=== PATIENT | female | born 1955 | race Two or more races ===

== ENCOUNTER 2023-10-08 11:53 | Inpatient (IN) | payer MEDICARE, OTHER ==
[~2023-10-08] VITALS: Ht 154.9 cm; Wt 80.9 kg
[2023-10-08] MEDS: InsuLIN REG 1unit/0.01ml Soln (100units/ml) SC SCH (11:30)
[2023-10-08 13:59] LABS: Basophils # (auto) 0.1 10 ^3/uL (0-0.2); Eosinophils # (auto) 0.1 10 ^3/uL (0-0.8); Eosinophils % (auto) 0.7 % (0.0-7.0); Hematocrit 35.1 % (36.0-46.0); Hemoglobin 11.9 g/dL (12.2-16.2); Lymphocytes # (auto) 2.5 10 ^3/uL (0.4-5.4); Lymphocytes % (auto) 29.1 % (10.0-50.0); Mean Corpuscular Hemoglobin 30.8 pg (28.0-32.0); Mean Corpuscular Volume 90.6 fL (80.0-100.0); Monocytes # (auto) 0.7 10 ^3/uL (0-1.3); Monocytes % (auto) 8.1 % (0.0-12.0); Neutrophils # (auto) 5.3 10 ^3/uL (1.6-8.6); Neutrophils % (auto) 61.1 % (37.0-80.0); Nucleated Red Blood Cells % 0.1 %; Red Blood Cells 3.87 10^6/uL (4.0-5.20); Red Cell Distribution Width 13.2 % (11.8-14.3); White Blood Cell 8.6 10^3/uL (4.4-10.8)
[2023-10-08 14:09] LABS: Anion Gap 10 (5-15); Carbon Dioxide 24 mmol/L (20-30); Chloride 99 mmol/L (98-107); Potassium 4.4 mmol/L (3.5-5.1); Sodium 133 mmol/L (136-145)
[2023-10-08 14:10] LABS: Calcium 9.6 mg/dL (8.7-10.4)
[2023-10-08 14:15] LABS: BUN/Creatinine Ratio 4.6 (10.0-20.0); Blood Urea Nitrogen 54 mg/dL (9-23); Glucose 113 mg/dL (74-106)
[2023-10-08 15:23] VITALS: PULSE 74; RESP 19; O2SAT 96
[2023-10-08 16:03] LABS: Urine Bacteria None Seen /hpf (None Seen)
[2023-10-08 16:23] LABS: Urine Blood TRACE /uL (Negative); Urine Clarity Clear (Clear); Urine Color Light-Yellow (Yellow); Urine Protein, UAD 2+ (Negative); Urine Specific Gravity 1.014 (1.001-1.035); Urine Urobilinogen Normal (Negative); Urine WBC 4 /hpf (0 - 5)
[2023-10-08] MEDS ORDERED: DOCUSATE SOD 100 MG CAP PO PRN (16:30)
[2023-10-08] MEDS ORDERED: ACETAMINOPHEN 325 MG TAB PO PRN (16:30)
[2023-10-08] MEDS ORDERED: DEXTROSE (50%) 50ML SYRG IV PRN (16:30)
[2023-10-08] MEDS ORDERED: ONDANSETRON HCL 4 MG/2 ML VIAL IV PRN (16:30)
[2023-10-08] MEDS ORDERED: NITROGLYCERIN 0.4 MG SL TAB SL PRN (17:15)
[2023-10-08] MEDS ORDERED: MORPHINE SULFATE INJ 2 MG/ml SYRG IV PRN (17:15)
[2023-10-08] MEDS: ACCU-CHEK COMFORT CURVE STRIP VI SCH (17:35)
[2023-10-08] MEDS: SEVELAMER 800 MG TAB PO SCH (17:41)
[2023-10-08] MEDS ORDERED: SEVELAMER 800 MG TAB PO SCH (17:45)
[2023-10-08] MEDS: SEVELAMER 800 MG TAB PO ONE (18:34)
[2023-10-08 21:41] VITALS: BP 140/46; PULSE 62; RESP 18; TEMP 98; O2SAT 93
[2023-10-08 21:44] VITALS: BP 140/46; PULSE 62; RESP 18; TEMP 98; O2SAT 93
[2023-10-08] MEDS ORDERED: HYDR25TA87 PO (22:02)
[2023-10-08] MEDS ORDERED: CHLO25TA2 PO (22:02)
[2023-10-08] MEDS ORDERED: ESCI20TA PO (22:02)
[2023-10-08] MEDS ORDERED: AMIT25TA20 PO (22:02)
[2023-10-08] MEDS ORDERED: ERGO4000 XX (22:02)
[2023-10-08] MEDS ORDERED: AMLO1TAB22 PO (22:02)
[2023-10-08] MEDS ORDERED: HYDR-4798 PO (22:02)
[2023-10-08] MEDS ORDERED: SUCR1TAB PO (22:02)
[2023-10-08] MEDS ORDERED: BENZ100C97 PO (22:02)
[2023-10-08] MEDS ORDERED: FOLI400T15 PO (22:05)
[2023-10-08] MEDS ORDERED: ICOS1CAP OR (22:05)
[2023-10-08] MEDS ORDERED: INSLANTI SC (22:06)
[2023-10-08] MEDS ORDERED: FOLI-119 PO (22:06)
[2023-10-08] MEDS ORDERED: HYDRX10T PO (22:19)
[2023-10-08] MEDS ORDERED: ALBU108A14 IN (22:19)
[2023-10-08] MEDS ORDERED: LACT10SO3 PO (22:19)
[2023-10-08] MEDS ORDERED: DOCU-94 PO (22:19)
[2023-10-08] MEDS ORDERED: CLON-857 PO (22:19)
[2023-10-08] MEDS ORDERED: LATA0.008 RIGHTEYE (22:19)
[2023-10-08] MEDS ORDERED: TIOTCAP IN (22:19)
[2023-10-08] MEDS ORDERED: CLON0.1T PO (22:19)
[2023-10-08] MEDS ORDERED: CLON0.1D13 TD (22:19)
[2023-10-08] MEDS ORDERED: NALO4SPR2 (22:19)
[2023-10-08] MEDS ORDERED: SEVE800T8 PO (22:19)
[2023-10-08] MEDS ORDERED: FEXO-42 PO (22:19)
[2023-10-08] MEDS ORDERED: FLUT100I IN (22:19)
[2023-10-09] VITALS (8 sets, daily range): BP systolic 119–147; BP diastolic 55–68; PULSE 55–73; RESP 17–20; TEMP 98.1–99.4; O2SAT 93–100
[2023-10-09] MEDS: HYDROcodone-ACET 5/325MG TAB PO PRN (02:53)
[2023-10-09] MEDS: LACTULOSE 20Gm/30ML SOLN PO ONE (09:15)
[2023-10-09 09:50] LABS: Basophils # (auto) 0.1 10 ^3/uL (0-0.2); Basophils % (auto) 0.7 % (0.0-2.0); Eosinophils # (auto) 0.1 10 ^3/uL (0-0.8); Eosinophils % (auto) 1.2 % (0.0-7.0); Hematocrit 34.6 % (36.0-46.0); Hemoglobin 11.9 g/dL (12.2-16.2); Lymphocytes # (auto) 3.8 10 ^3/uL (0.4-5.4); Lymphocytes % (auto) 39.5 % (10.0-50.0); Mean Corpuscular Hgb Conc. 34.2 g/dL (32.0-36.0); Mean Corpuscular Volume 90.7 fL (80.0-100.0); Monocytes # (auto) 0.9 10 ^3/uL (0-1.3); Monocytes % (auto) 9.5 % (0.0-12.0); Neutrophils # (auto) 4.7 10 ^3/uL (1.6-8.6); Neutrophils % (auto) 49.1 % (37.0-80.0); Red Blood Cells 3.82 10^6/uL (4.0-5.20); Red Cell Distribution Width 13.5 % (11.8-14.3); White Blood Cell 9.6 10^3/uL (4.4-10.8)
[2023-10-09] MEDS: B-COMPLEX W/ C & FOLIC ACID(NEPHROVITE TAB) PO SCH (09:56)
[2023-10-09] MEDS: SEVELAMER 800 MG TAB PO SCH (09:56)
[2023-10-09 10:12] LABS: Albumin 3.7 g/dL (3.2-4.8); Alkaline Phosphatase 81 U/L (46-116); Anion Gap 10 (5-15); Aspartate Aminotransferase 13 U/L (13-40); BUN/Creatinine Ratio 4.6 (10.0-20.0); Blood Urea Nitrogen 54 mg/dL (9-23); Calcium 9.4 mg/dL (8.7-10.4); Carbon Dioxide 23 mmol/L (20-30); Chloride 100 mmol/L (98-107); Glucose 104 mg/dL (74-106); Potassium 3.8 mmol/L (3.5-5.1); Sodium 133 mmol/L (136-145)
[2023-10-09 10:13] LABS: Bilirubin, Total 0.2 mg/dL (0.2-1.0); Total Protein 6.9 g/dL (5.7-8.2)
[2023-10-09 10:33] LABS: Alanine Aminotransferase < 9 U/L (7-40)
[2023-10-09] MEDS: FUROSEMIDE 20 MG TAB PO ONE (17:20)
[2023-10-09] MEDS: HEPARIN SODIUM (PORCINE) 5000 UNITS/ML 1ML VIAL SC SCH (21:48)
[2023-10-10 01:00] VITALS: BP 126/57; PULSE 64; RESP 17; TEMP 97.9; O2SAT 96
[2023-10-10 05:00] VITALS: BP 149/67; PULSE 64; RESP 17; TEMP 98.1; O2SAT 100
[2023-10-10 08:00] VITALS: PULSE 69; PULSE 71; RESP 20; O2SAT 94
[2023-10-10 09:00] VITALS: BP 140/61; PULSE 69; RESP 18; TEMP 98.7; O2SAT 94
[2023-10-10] MEDS: FUROSEMIDE 20 MG TAB PO SCH (10:29)
[2023-10-10] MEDS ORDERED: GASTROGRAFIN 120 ML SOL ONE (12:34)
[2023-10-10 13:00] VITALS: BP 151/58; PULSE 82; RESP 16; TEMP 98; O2SAT 93
[2023-10-10] MEDS ORDERED: FLUC200T50 PO (13:45)
[2023-10-10] MEDS ORDERED: AMOX500C2 PO (13:45)
[2023-10-10] MEDS ORDERED: CIPR500T4 PO (13:50)
== END 2023-10-10 14:20 | disposition home or self-care (01) | DRG 919 ==
LOC: ER 11:53 → TELE 17:12 → TELE-EAST 21:40
PROVIDERS: ADMIT Internal Medicine; ATTEND Emergency Medicine
DX: T85.691A Other mechanical complication of intraperitoneal dialysis catheter, initial encounter (principal); N18.6 End stage renal disease; I13.2 Hypertensive heart and chronic kidney disease with heart failure and with stage 5 chronic kidney disease, or end stage renal disease; I50.32 Chronic diastolic (congestive) heart failure; E78.5 Hyperlipidemia, unspecified; Y83.8 Other surgical procedures as the cause of abnormal reaction of the patient, or of later complication, without mention of misadventure at the time of the procedure; E11.22 Type 2 diabetes mellitus with diabetic chronic kidney disease; Z88.1 Allergy status to other antibiotic agents; Z88.8 Allergy status to other drugs, medicaments and biological substances; Z79.899 Other long term (current) drug therapy; Z88.0 Allergy status to penicillin; Z88.2 Allergy status to sulfonamides; Y92.89 Other specified places as the place of occurrence of the external cause; Z82.49 Family history of ischemic heart disease and other diseases of the circulatory system; Z83.3 Family history of diabetes mellitus; Z99.2 Dependence on renal dialysis
CPT/HCPCS: 36415; 71045; 74018; 80048; 80053; 81001; 82962; 83036; 85025; 87081; 93005; G0378